=== PATIENT | male | born 1955 | race Caucasian/White ===

== ENCOUNTER 2016-05-15 10:34 | Emergency (ER) | payer BC ==
[2016-05-15 11:32] VITALS: BP 166/94; PULSE 78; TEMP 98.3; BMI 35.9
--- NOTE | 2016-05-15 11:38 | PDOC ---
History of Present Illness - General Chief Complaint: Nasal Bleeding Stated Complaint: BLOODY NOSE Time Seen by Provider: 05/15/16 11:02 - History of Present Illness Initial Comments: 05/15/16 11:34 61-year-old male with a past medical history of hypertension and hyperlipidemia His only blood thinner is a baby aspirin daily for prevention purposes Patient states that his mucous membranes and nares have been feeling very dry recently He states approximately 1 AM he started having a nosebleed from his left nares, anteriorly It was off and on through the night Then this morning, he had more profuse bleeding from the right nares, but was bleeding from both sides There was some blood going down the back of his throat He states that about a week ago he did have an upper respiratory type infection , but he has been okay for the past few days He states he has not been picking or blowing his nose for the past few days He denies any other issues with nosebleeds in the past Past History - Past Medical History Allergies/Adverse Reactions: Allergies Allergy/AdvReac Type Severity Reaction Status Date / Time tetracycline [Tetracycline] Allergy Severe Verified 05/15/16 10:44 lisinopril Allergy Intermediate Rash Verified 05/15/16 10:44 meperidine HCl [From Demerol] AdvReac Severe Verified 05/15/16 10:44 Home Medications: Ambulatory Orders Ascorbic Acid [Vitamin C] 500 mg PO DAILY tablet 05/24/15 Aspirin [Aspir-Low] 81 mg PO DAILY 05/24/15 Circumin DAILY 05/24/15 Creatine 100 gm MC TIW 05/24/15 Eye Bright DAILY 05/24/15 Garlic 1 each PO DAILY capsule 05/24/15 Green Tea DAILY 05/24/15 Raspberry DAILY 05/24/15 Tribulis DAILY 05/24/15 Cholecalciferol (Vitamin D3) [Vitamin D3] 2,000 unit PO DAILY capsule 10/14/15 Nad DAILY 10/14/15 Rosuvastatin Calcium [Crestor] 20 mg PO HS 05/15/16 Anemia: No Asthma: No Cancer: No Cardiac Disorders: No CVA: No COPD: No CHF: No Dementia: No Diabetes: No GI Disorders: No Disorders: No HTN: Yes Hypercholesterolemia: Yes Liver Disease: No Seizures: No Thyroid Disease: No - Surgical History Orthopedic Surgery: Yes (sx right knee many yrs ago. open method) - Psycho/Social/Smoking Cessation Hx Anxiety: No Suicidal Ideation: No Smoking Status: No Smoking History: Never smoked Have you smoked in the past 12 months: No Number of Cigarettes Smoked Daily: 0 Cigars Per Day: 1 Information on smoking cessation initiated: No Hx Alcohol Use: No Drug/Substance Use Hx: No Substance Use Type: None Hx Substance Use Treatment: No *Physical Exam - Vital Signs Last Vital Signs Temp Pulse Resp BP Pulse Ox 98.3 F 78 16 166/94 100 05/15/16 11:00 05/15/16 11:00 05/15/16 11:00 05/15/16 11:00 05/15/16 11:00 - Physical Exam Comments: 05/15/16 11:36 Physical exam Last Vital Signs Temp Pulse Resp BP Pulse Ox 98.3 F 78 16 166/94 100 05/15/16 11:00 05/15/16 11:00 05/15/16 11:00 05/15/16 11:00 05/15/16 11:00 Physical exam Patient is alert and ambulatory Head is normocephalic and atraumatic There is epistaxis from both nares but much more on the right than the left There is a small amount of blood going down the posterior throat, but the remainder of the mouth and oropharynx exam is benign On nasal speculum exam- There is a small amount of blood in the left nares, but no active bleeding There is currently active bleeding from the right nares Neck supple Lungs clear Heart regular Medical Decision Making - Medical Decision Making 05/15/16 11:37 The clots were cleaned out A small anterior rapid Rhino pack was placed in the right nares, after wetting with sterile saline, and placing Neosporin on the packing. Approximately 5-6 mL of air was placed in the balloon Will reevaluate 05/15/16 12:35 Patient started having some bleeding out of the left nares The right anterior rapid Rhino pack was removed There is a tiny bit of bleeding on the right but it looks much improved A small anterior rapid Rhino pack was placed in the left nares after wetting with sterile saline and placing Neosporin on the packing will re-evaluate 05/15/16 13:24 Left anterior packing removed, nose started bleeding again - L nares Repacked with an anterior rapid Rhino pack 05/15/16 14:54 rapid Rhino pack was placed again in the left nares, after wetting with sterile saline, and placing Neosporin on the packing Approximately 5-6 mL of air was placed in the balloon Left anterior packing in place Bleeding just about stopped at this time Mouth and oropharynx benign No further bleeding from R side Impression-complex epistaxis I called ENT-patient will be seen at 3:[address] Sandoval in the ENT office in the [facility] given augmentin dose d/c from ED with L nasal packing in place (rapid rhino) *DC/Admit/Observation/Transfer Diagnosis at time of Disposition: Epistaxis - Discharge Dispostion Disposition: HOME Condition at time of disposition: Stable - Referrals Referrals: Scott Sandoval MD [Staff Physician] - ([facility] - 3:45 pm today) - Patient Instructions Printed Discharge Instructions: Nosebleed, DI for Nosebleed Additional Instructions: Do not pick or blow your nose !!! Keep the packing in place You have a 3:45 PM appointment today with Dr. Sandoval-ENT, in the [place] office [address] [place] [address], 6th floor [phone] You were given 1 dose of antibiotic here in the emergency department Please ask Dr. Sandoval for any further antibiotic if needed Followup with your primary care physician in 24-48 hours Return immediately if you worsen in any way - Post Discharge Activity Work/School Note: Back to Work
[2016-05-15] MEDS ORDERED: AMOX TR/POT CLAV 875MG/125MG TABLETS (FP) ONE (14:53)
[2016-05-15] MEDS ORDERED: AMOX TR/POT CLAV 875MG/125MG TABLETS (FP) PO ONE (14:54)
== END 2016-05-15 14:58 | disposition home or self-care (01) ==
LOC: FER 10:34
PROC: 2Y41X5Z Packing of Nasal Region using Packing Material (ICD-10-PCS; principal; 2016-05-15)
DX: R04.0 Epistaxis (principal); I10 Essential (primary) hypertension; E78.5 Hyperlipidemia, unspecified; Z79.82 Long term (current) use of aspirin
CPT/HCPCS: 99282-25

== ENCOUNTER 2021-05-18 11:58 | Emergency (ER) | payer BC, OTHER ==
[2021-05-18 12:06] VITALS: BP 164/79; PULSE 50; TEMP 97.9; BMI 34.2
== END 2021-05-18 12:46 | disposition home or self-care (01) ==
LOC: FER 11:58
DX: T16.1XXA Foreign body in right ear, initial encounter (principal); H92.01 Otalgia, right ear
CPT/HCPCS: 99283-25

== ENCOUNTER 2021-09-10 09:45 | Observation (INO) | payer BC, OTHER ==
[2021-09-10] MEDS ORDERED: SODIUM CHLORIDE 0.9% 500 ML INFUS.BAG IV ONE (10:10)
[2021-09-10 11:37] LABS: HEMATOCRIT 50.2 % (35.4-49); HEMOGLOBIN 17.3 G/dL (11.7-16.9); MCH 29.7 pg (25.7-33.7); MCHC 34.4 g/dl (32.0-35.9); MEAN CELL VOLUME 86.4 fl (80-96); MEAN PLT VOLUME 8.7 fl (7.5-11.1); PLATELET COUNT 259.5 10^3/uL (134-434); RBC 5.81 10^6/uL (4.00-5.60); RDW 14.7 % (11.9-15.9); WHITE BLOOD COUNT 9.4 10^3/uL (4.0-10.8)
[2021-09-10 11:43] LABS: CALCIUM 9.9 mg/dL (8.5-10.1)
[2021-09-10 11:44] LABS: BILIRUBIN,TOTAL 1.2 mg/dl (0.2-1); BLOOD UREA NITROGEN 16.2 mg/dL (7-18); CREATININE 1.3 mg/dl (0.55-1.3); MAGNESIUM 2.3 mg/dL (1.8-2.4); PHOSPHOROUS 1.4 mg/dl (2.5-4.9); TOT PROT 7.6 g/dl (6.4-8.2)
[2021-09-10] MEDS ORDERED: NAPH,MB-DB/K PH,MBDB POWDER PACKET PO ONE (12:21)
[2021-09-10] MEDS ORDERED: ASPIRIN 81 MG CHEWABLE TABLETS ONE (13:49)
[2021-09-10] MEDS ORDERED: ROSUVASTATIN CA 20 MG TABLET PO SCH (17:15)
[2021-09-10 17:21] VITALS: BMI 34.1
[2021-09-11 07:08] VITALS: TEMP 98.1
[2021-09-11 09:13] VITALS: BP 151/76; PULSE 47
[2021-09-11 09:17] LABS: HEMATOCRIT 42.7 % (35.4-49); HEMOGLOBIN 15.1 G/dL (11.7-16.9); MCH 30.6 pg (25.7-33.7); MCHC 35.4 g/dl (32.0-35.9); MEAN CELL VOLUME 86.5 fl (80-96); MEAN PLT VOLUME 8.3 fl (7.5-11.1); PLATELET COUNT 257.5 10^3/uL (134-434); RBC 4.94 10^6/uL (4.00-5.60); RDW 14.5 % (11.9-15.9); WHITE BLOOD COUNT 11.4 10^3/uL (4.0-10.8)
[2021-09-11 09:31] LABS: ALBUMIN 3.8 g/dl (3.4-5.0); BILIRUBIN,TOTAL 1.1 mg/dl (0.2-1); CALCIUM 9.3 mg/dl (8.5-10); CREATININE 1.2 mg/dl (0.55-1.3)
[2021-09-11] MEDS ORDERED: ROSUVASTATIN CA 20 MG TABLET PO SCH (09:57)
[2021-09-11] MEDS ORDERED: VALSARTAN 160 MG TABLET PO SCH (10:00)
[2021-09-11] MEDS ORDERED: ENOXAPARIN NA (PORCINE) 40 MG/0.4 ML DISP.SYRIN SQ SCH (10:00)
[2021-09-11] MEDS ORDERED: ASPIRIN COATED 81 MG TABLET.EC PO SCH (10:00)
[2021-09-11] MEDS ORDERED: LOSARTAN POTASSIUM 50 MG TABLET PO SCH (10:00)
[2021-09-11 12:39] LABS: CHOLESTEROL 199 mg/dL (50-200); TRIGLYCERIDES 143 mg/dL (0-150)
[2021-09-11 12:42] LABS: HDL CHOLESTEROL 51 mg/dL (40-60); LDL CHOLESTEROL (ONLY DFH) 119 mg/dl (5-100)
== END 2021-09-11 12:02 | disposition home or self-care (01) ==
LOC: FER 09:45 → FM/S 14:14
PROVIDERS: ADMIT Internal Medicine; ATTEND Nurse Practitioner Family
DX: R74.8 Abnormal levels of other serum enzymes (principal); R42 Dizziness and giddiness; I10 Essential (primary) hypertension; E78.5 Hyperlipidemia, unspecified; Z88.8 Allergy status to other drugs, medicaments and biological substances; D72.829 Elevated white blood cell count, unspecified
CPT/HCPCS: 0241U-QW; 36415; 71045-TC-FY; 80053; 80061; 82550; 83735; 84100; 84443; 84484; 85027; 93005; 93010; 99283-25; G0378